=== PATIENT | male | born 1975 | race Hispanic/Latino ===

== ENCOUNTER 2018-04-19 06:09 | Day surgery (SDC) | payer MEDICARE ==
[2018-04-19] MEDS ORDERED: NACL BACTERIOSTATIC INFILTRATI ONE (06:15)
[2018-04-19] MEDS ORDERED: ANTIBIOTIC OINT TP ONE (06:48)
[2018-04-19] MEDS ORDERED: MARCAINE 0.5% 30 ML INFILTRATI ONE (06:48)
[2018-04-19] MEDS ORDERED: ANCEF ONE (06:48)
[2018-04-19] MEDS ORDERED: NACL 0.9% 250ML 250 ML ONE (06:49)
[2018-04-19] MEDS ORDERED: BACITRACIN ONE (06:49)
[2018-04-19] MEDS ORDERED: XYLOCAINE 1%/ EPI 1:100,000 INFILTRATI ONE (06:49)
[2018-04-19] MEDS ORDERED: NACL P/F VIAL (10 ML) 10 ML ONE (06:50)
[2018-04-19] MEDS ORDERED: NACL 0.9% 1000 ML 1,000 ML ONE ×2 (06:51→10:38)
[2018-04-19] MEDS ORDERED: LACTATED RINGERS 1,000 ML ONE (07:22)
--- NOTE | 2018-04-19 07:41 | Anesthesia Day of Surgery ---
Anesthesia Day of Surgery - Day of Surgery Patient Examined: Yes Patient H&P Reviewed: Yes Patient is NPO: Yes
--- NOTE | 2018-04-19 07:41 | Anesthesia Consultation ---
Anesthesia Consult and Med Hx Date of service: 04/19/18 - Airway Anesthetic Teeth Evaluation: Poor, Chipped ROM Head & Neck: Adequate Mental/Hyoid Distance: Adequate Mallampati Class: Class III - Pulmonary Exam CTA: Yes - Cardiac Exam Cardiac Exam: No Murmur - Pre-Operative Health Status ASA Pre-Surgery Classification: ASA3 Proposed Anesthetic Plan: General - Pre-Anesthesia Comment Pre-Anesthesia Comments: patient with obese neck. c/o symptoms of SILVIO.. no official diagnosis. decreased activity 2/2 back and leg discomfort - Pulmonary Hx Smoking: Yes (STOPPED X 6 YRS- 2PPD X 20 YRS) Hx Asthma: Yes (NO MEDS) Hx Sleep Apnea: No (SILVIO PRE SCREEN HIGH RISK) - Cardiovascular System Hx Hypertension: No Hx Heart Murmur: Yes (CAUSES NO PROBLEMS) - Central Nervous System Hx Back Pain: Yes (WITH KUMAR LEG PAIN AND WEAKNESS) Hx Psychiatric Problems: Yes (PTSD) - Other Systems Hx Alcohol Use: Yes (HX ABUSE- DRY X 5 YRS) Hx Substance Use: Yes (HX COCAINE ABUSE- CLEAN SINCE 2003) Hx Cancer: No
[2018-04-19] MEDS ORDERED: TORADOL IV PRN (07:42)
[2018-04-19] MEDS ORDERED: DEMEROL IV PRN (07:42)
[2018-04-19] MEDS ORDERED: DILAUDID IV PRN (07:42)
[2018-04-19] MEDS ORDERED: LACTATED RINGERS 1,000 ML IV SCH (08:00)
[2018-04-19] MEDS ORDERED: VERSED IV NR (08:00)
[2018-04-19] MEDS ORDERED: TRANSDERM-SCOP TD NR (08:00)
[2018-04-19] MEDS ORDERED: ZOFRAN IV NR (08:00)
[2018-04-19] MEDS ORDERED: VERSED IV ONE (08:29)
[2018-04-19] MEDS ORDERED: DECADRON ONE (08:33)
[2018-04-19] MEDS ORDERED: BLOXIVERZ ONE (08:33)
[2018-04-19] MEDS ORDERED: ZOFRAN ONE (08:33)
[2018-04-19] MEDS ORDERED: TORADOL ONE ×2 (08:33→11:56)
[2018-04-19] MEDS ORDERED: SUBLIMAZE ONE (08:33)
[2018-04-19] MEDS ORDERED: QUELICIN ONE (08:33)
[2018-04-19] MEDS ORDERED: ROBINUL ONE (08:33)
[2018-04-19] MEDS ORDERED: KETALAR ONE (08:34)
[2018-04-19] MEDS ORDERED: DIPRIVAN 10 MG/ML IV ONE ×7 (08:34→10:08)
[2018-04-19] MEDS ORDERED: ePHEDrine 50 MG/5 ML-0.9% NACL IV ONE (09:00)
[2018-04-19] MEDS ORDERED: METHYLENE BLUE ONE (09:16)
[2018-04-19] MEDS ORDERED: CLEOCIN 300 MG/50 mL 300 MG/50 ML BAG IV ONE (09:16)
[2018-04-19] MEDS ORDERED: NACL 0.9% 500 ML 500 ML ONE (09:56)
[2018-04-19] MEDS ORDERED: DEPO-MEDROL ONE (11:14)
--- NOTE | 2018-04-19 12:26 | Short Stay Summary ---
Short Stay Documentation Date of service: 04/19/18 Narrative H&P: The patient is a 43-year-old male with chronic axial low back pain and bilateral leg pain. He is undergone conservative management as well as interventional pain management. Recently, provocation discography was performed at L4-5 which illustrated concordant back pain with broad-based disc bulge accompanied by central disc protrusion and right paracentral radial tear as well as concentric outer annular tear bilaterally. Based on imaging findings with's post discography CT and MRI scan, the patient appears to be an excellent candidate for minimally invasive lumbar discectomy. - History Principal diagnosis: Lumbar Disc Herniation with Radiculopathy Past Medical History: hepatitis (Hepatitis C), hypertension Past Surgical History: cholecystectomy Social history: no significant social history - Allergies and Medications Current Medications: Allergies Penicillins Allergy (Verified 03/29/18 10:01) Rash Home Medications Medication Instructions Recorded Confirmed Last Taken Type Buspirone HCl [busPIRone] 15 mg PO BID 04/03/18 04/19/18 04/19/18 History Diclofenac Sodium 75 mg PO BID 04/03/18 04/19/18 04/03/18 History FLUoxetine HCL [PROzac] 40 mg PO BID 04/03/18 04/19/18 04/19/18 History Gabapentin [Neurontin] 300 mg PO DAILY 04/03/18 04/19/18 04/18/18 History OXcarbazepine [Trileptal] 300 mg PO BID 04/03/18 04/19/18 04/19/18 History Oxycodone HCl [Oxycontin] 20 mg PO BID 04/03/18 04/19/18 04/18/18 History Oxycodone HCl/Acetaminophen 1 each PO BID 04/03/18 04/19/18 04/19/18 History [Percocet 7.5/325 mg] Perphenazine [Trilafon] 4 mg PO BID 04/03/18 04/19/18 04/12/18 History clonazePAM [Klonopin] 1 mg PO BID 04/03/18 04/19/18 04/19/18 History tiZANidine [Zanaflex] 4 mg PO DAILY 04/03/18 04/19/18 04/18/18 History Active Medications Hydromorphone HCl (Dilaudid) 1 mg IV Q10MIN PRN PRN Reason: Pain , Severe (7-10) Stop: 04/19/18 18:00 Lactated Ringer's (Lactated Ringers) 1,000 mls @ 150 mls/hr IV DIRECT DIANNA Ketorolac Tromethamine (Toradol) 30 mg IV ONCE PRN PRN Reason: Pain, Moderate (4-6) Stop: 04/19/18 18:00 Meperidine HCl (Demerol) 25 mg IV ONCE PRN PRN Reason: Shivering Stop: 04/19/18 18:00 Midazolam HCl (Versed) 2 mg IV PREOP NR Stop: 04/19/18 23:59 Ondansetron HCl (Zofran) 4 mg IV PREOP NR Stop: 04/19/18 23:59 Scopolamine (Transderm-Scop) 1 each TD PREOP NR Stop: 04/22/18 07:59 - Physical exam General appearance: no acute distress Integumentary: other (rash on face and chest.) HEENT: Atraumatic, PERRLA, EOMI Lungs: Clear to auscultation Breasts: deferred Heart: Regular rate, No murmurs Gastrointestinal: normal Male Genitourinary: normal Female Genitourinary: deferred Rectal Exam: deferred Extremities: No edema, Full ROM Neurological: Normal gait, Normal speech, Strength at 5/5 X4 ext, Sensation intact - Brief post op/procedure progress note Date of procedure: 04/19/18 Pre-op diagnosis: Lumbar Disc Herniation at L4-5 with bilateral lumbar radiculopathy. Post-op diagnosis: same Procedure: Minimally Invasive Lumbar Discectomy at L4-5. Anesthesia: GETA Findings: Moderate lumbar disc degeneration with midline disc protrusion and left paracentral radial annular tear. Surgeon: JAMEY BRYANT Estimated blood loss: minimal Pathology: none Condition: stable - Hospital course Hospital course: The patient was observed for 2 hours postprocedure. No complications. Pain adequately controlled. - Disposition Condition at discharge: Good Disposition: DC-01 TO HOME OR SELFCARE - Discharge Diagnoses (1) Lumbar disc disease with radiculopathy Status: Chronic (2) Lumbar disc herniation with radiculopathy Status: Acute Short Stay Discharge Plan Follow up with: GUICHO DEGROOT MD [Primary Care Provider] - 7 Days
--- NOTE | 2018-04-19 13:34 | Operative Report ---
Operative Report Operative Report: Preoperative Diagnoses: 1. Chronic Axial Low Back Pain. 2. Chronic Lumbar radiculopathy. 3. Lumbar Disc Herniation L4-5. Postoperative diagnoses: 1. Chronic axial low back pain. 2. Chronic Lumbar radiculopathy. 3. Lumbar disc herniation L4-5. Procedure: 1. Lumbar myelography. 2. Lumbar discography at L4-5. 3. Minimally invasive lumbar discectomy at L4-5. 3. Left L4-5 transforaminal epidural corticosteroid injection. Surgeon: Carlos Butler Anesthesia: General endotracheal. Estimated blood loss: 15 mL Complications: None. Neuromonitoring: Continuous EMG neuromonitoring was performed.. Indication: The patient is a 43-year-old male with history of chronic low back pain and bilateral leg pain. Prior imaging reveals disc degeneration L4-5 with the central contained disc herniation and moderate disc degeneration with left lateral radial annular tear. Patient has undergone extensive conservative management without resolution of symptoms. He now presents for minmally invasive lumbar discectomy atL4-5 Performed procedure: Following informed consent, the patient was brought to the operative suite and general endotracheal anesthesia was induced. Neuromonitoring leads were applied to the lower extremities laterally. EMG neuromonitoring was performed throughout the procedure. The patient was then carefully turned onto the operative table in the prone position. All pressure points were meticulously padded. He received 600 mg clindamycin intravenously for antibiotic prophylaxis. The back was sterilely prepped and draped in routine fashion. Attention was initially turned to the lumbar spine at L4-5 on the right. Fluoroscopy revealed mild decrease in disc height at L4-5 with normal alignment. Using fluoroscopic guidance, a 20-gauge needle was advanced into the central aspect of the intervertebral disc. Discography was performed using Omnipaque 240 mixed with methylene blue to sustain the disc material. The discogram demonstrated moderate degeneration of the posterior aspect the disc with annular tear identified on the left. No full thickness tear however was observed. Attention was next turned to the L3-4 level. Using a left paramedian interlaminar approach, a 25-gauge needle was advanced into the subarachnoid space. Following free flow of CSF, intraoperative myelography was performed using injection of 10 mL of Omnipaque 240. There was free flow of contrast into the caudal last sac outlining the nerve roots. No significant stenosis was observed at either L3-4, L4-5 or L5-S1. Next a skin incision was made with a #15 blade. A tract was then dilated to the lateral aspect of the left L4-L5 neural foramen and a tubular retractor was placed allowing for direct visualization. The foramen was found to be mildly stenotic secondary to superior articular process enlargement and foraminal disc bulge.. Following hemostasis with bipolar electrocautery, with endoscopic assistance, the lateral margin of the articular process was sequentially reamed , opening the lateral foramen. The annulus was exposed. An annulotomy was created. Central decompression of the disc was performed with removal of disc material. This was followed by insertion of bipolar electrocautery device and intradiscal cauterization was performed across the posterior aspect of the annulus. Herniated disc material was removed in piecemeal fashion. Dissection was then extended into the lateral recess were additional collagenized herniated disc material was encountered and resected. The ventral epidural space was explored. Pulsation of the ventral dura was observed consistent with satisfactory lateral recess decompression. The foramen was inspected and appeared to be satisfactorily decompressed. No foraminal disc herniation was observed. Hemostasis was obtained and found to be satisfactory. This was followed by removal of the instrumentation and placement of a 18-gauge needle into the neural foramen under fluoroscopic visualization. Aspiration was negative for blood and CSF. Contrast was injected to confirm position within the left ventral aspect of the central spinal canal.. This is followed by injection of 80 mg of methylprednisolone mixed with 2 mL of 0.5% bupivacaine. There was satisfactory contrast washout. The needle was withdrawn. The skin incision was then closed with interrupted subcutaneous 4-0 Monocryl sutures and 4-0 Prolene interrupted mattress sutures. Sterile dressing was applied. No abnormal EMG activity was identified during the procedure with continuous neuromonitoring, as detailed above. The patient was then carefully removed to a gurney, extubated and taken to the recovery room where she was noted to be in stable cardiopulmonary neurologic condition. Disposition: Patient was observed for 2 hours and discharged home in good condition.
--- NOTE | 2018-04-23 08:54 | Fluoroscopy Report ---
FLUOROSCOPY MYELOGRAM LUMBOSACRAL History: Lumbar disc herniation, radiculopathy. Findings: Fluoroscopy was provided by radiology during lumbar myelogram and discogram at L4-5 during surgery. 11 fluoroscopic images were captured by the surgeon. The images demonstrate contrast agent within the spinal canal and contrast agent within the L4-5 disc space. Please correlate with the procedural report as needed.
== END 2018-04-19 06:10 | disposition home or self-care (01) ==
LOC: OR 06:09
PROVIDERS: ATTEND Radiology Diagnostic Radiology
DX: M51.16 Intervertebral disc disorders with radiculopathy, lumbar region (principal); I10 Essential (primary) hypertension; B19.20 Unspecified viral hepatitis C without hepatic coma; J45.909 Unspecified asthma, uncomplicated; K21.9 Gastro-esophageal reflux disease without esophagitis; G47.33 Obstructive sleep apnea (adult) (pediatric); F43.10 Post-traumatic stress disorder, unspecified; Z90.49 Acquired absence of other specified parts of digestive tract; Z87.891 Personal history of nicotine dependence; Z88.0 Allergy status to penicillin
CPT/HCPCS: 62304; 62380; J0330; J1030; J1100; J1885; J2250; J2405; J2704; J3010; J7030; J7040; J7050; J7120; Q9966; Q9968; J0690; J2710